=== PATIENT | male | born 1965 | race Hispanic/Latino ===

== ENCOUNTER 2022-11-20 08:28 | Day surgery (SDC) | payer OTHER ==
[2022-11-18 16:10] LABS: BASOPHILS # (AUTO) 0.02 K/uL (0.00-0.20); BASOPHILS % (AUTO) 0.3 % (0.0-5.0); EOSINOPHILS # (AUTO) 0.08 K/uL (0.00-0.70); EOSINOPHILS % (AUTO) 1.3 % (0.0-8.0); HEMATOCRIT 44.4 % (42-54); IMMATURE GRANULOCYTE ABSOLUTE 0.02 K/uL (0-1); LYMPHOCYTES # (AUTO) 1.3 K/uL (1.0-4.8); LYMPHOCYTES % (AUTO) 20.3 % (21.0-51.0); MEAN CORPUSCULAR HGB CONC 35.1 g/dL (32.0-36.0); MEAN CORPUSCULAR VOLUME 82.5 fL (79-99); MONOCYTES # (AUTO) 0.4 K/uL (0.1-1.0); MONOCYTES % (AUTO) 6.6 % (3.0-13.0); NEUTROPHILS # (AUTO) 4.5 K/uL (1.8-7.7); NEUTROPHILS % (AUTO) 71.2 % (40.0-77.0); PLATELET COUNT (AUTO) 192 K/uL (130-400); RED BLOOD CELL COUNT(AUTO) 5.38 MIL/uL (4.50-6.20); RED CELL DISTRIBUTION WIDTH 13.3 % (11.0-15.5); WHITE BLOOD COUNT (AUTO) 6.3 K/uL (4.8-10.8)
[2022-11-18 16:14] LABS: CREATININE 1.4 mg/dL (0.5-1.5); POTASSIUM 3.7 mmol/L (3.5-5.1)
[2022-11-18 16:27] VITALS: BP 82/64; PULSE 99; RESP 18
[2022-11-20] VITALS (18 sets, daily range): BP systolic 111–145; BP diastolic 61–94; PULSE 90–111; RESP 10–18
[~2022-11-20] VITALS: Ht 175.3 cm; Wt 70.2 kg
[~2022-11-20 08:28] MED LIST: 0.9%NACL 1000ML 1,000 ML IV SCH; AMLO-511 PO; ASPI-1197 PO; BEMP1TAB PO; CEFAZOLIN SODIUM 1 GM VIAL IVPB PRN; CINN500C PO; EMPA1TAB7 PO; FINE10TA PO; FISH1CAP50 PO; INSU200I4 SQ; INSU3INS5 SQ; METO-408 PO; MULT-1259 PO; PIOG15TA66 PO; ROSU40TA21 PO; SEMA3TAB4 PO; SITA1TBM4 PO
[2022-11-20] MEDS ORDERED: CEFAZOLIN SODIUM 2 GM VIAL ONE (09:21)
[2022-11-20] MEDS ORDERED: 0.9%NACL 1000ML 1,000 ML IV ONE (09:21)
[2022-11-20] MEDS ORDERED: METOPROLOL TARTRATE 1 MG/ML 5ML VIAL IV ONE (09:37)
[2022-11-20] MEDS ORDERED: BUPIVACAINE/PF 0.25% 30ML VIAL IJ ONE ×2 (09:49→11:08)
[2022-11-20] MEDS ORDERED: MORPHINE 2 MG SYG ONE (10:49)
[2022-11-20] MEDS ORDERED: HYDROMORPHONE 1 MG INJ ONE (10:49)
[2022-11-20] MEDS ORDERED: FAMOTIDINE 20MG VIAL IV ONE (10:50)
[2022-11-20] MEDS ORDERED: MIDAZOLAM HCL 1 MG/ML 2ML VIAL ONE (10:51)
[2022-11-20] MEDS ORDERED: ROCURONIUM 10MG/1ML SYR 10 MG/ML ML ONE (10:52)
[2022-11-20] MEDS ORDERED: FENTANYL CITRATE PF 50 MCG/1 ML 2ML VIAL ONE (10:52)
[2022-11-20] MEDS ORDERED: GLYCOPYRROLATE 1 MG/5 ML SYRINGE ONE (10:52)
[2022-11-20] MEDS ORDERED: LIDOCAINE PF 100MG/5ML (2%) SYRINGE 5ML ONE (10:52)
[2022-11-20] MEDS ORDERED: PROPOFOL 10 MG/ML 20ML VIAL IV ONE ×2 (10:52→12:31)
[2022-11-20] MEDS ORDERED: CEFAZOLIN SODIUM 2 GM VIAL IVPB ONE (11:16)
[2022-11-20] MEDS ORDERED: SUGAMMADEX SODIUM 200 MG/2 ML VIAL IV ONE (11:43)
[2022-11-20] MEDS ORDERED: ONDANSETRON 4MG INJ ONE ×2 (12:21→13:24)
[2022-11-20] MEDS ORDERED: KETOROLAC 30MG VIAL (30MG/ML) ONE (13:25)
[2022-11-20] MEDS ORDERED: MEPERIDINE-PF 25 MG/ML SYG ONE (13:25)
== END 2022-11-20 15:30 | disposition home or self-care (01) ==
LOC: DAH 08:28
PROVIDERS: ATTEND Surgery
DX: K40.90 Unilateral inguinal hernia, without obstruction or gangrene, not specified as recurrent (principal); D17.6 Benign lipomatous neoplasm of spermatic cord; E11.9 Type 2 diabetes mellitus without complications; Z79.82 Long term (current) use of aspirin; Z79.899 Other long term (current) drug therapy; Z90.49 Acquired absence of other specified parts of digestive tract; Z79.4 Long term (current) use of insulin
CPT/HCPCS: 49650; S2900; 36415; 80048; 82948; 85025; 93005; A4344; J1170; J1885; J2001; J2175; J2250; J2270; J2405; J2704; J3010; J3490; J7030; A4215; A4221; A4222; A4223; A4600; A4649; A4663; A6260; C1781; G0168; J0690